=== PATIENT | male | born 1970 | race Caucasian/White ===

== ENCOUNTER → 2020-08-02 13:32 | Outpatient (CLI) | payer OTHER, SELFPAY ==
--- NOTE | ~2020-08-02 | XR_ITS ---
XR elbow RT min 3V DATE: 08/02/2020 13:57 INDICATION: Right elbow, arm pain TECHNIQUE: 5 views COMPARISON: None FINDINGS: There is a mildly depressed fracture of the radial head. There is spurring of the coronoid process of the proximal ulna. There is minimal if any elevation of the fat pads at the elbow. No prior radiograph available for [facility]. IMPRESSION: Radial head fracture Reviewed, dictated and finalized at location A. MANAGER IMPRESSION: Radial head fracture
== END ==
PROVIDERS: PCP Family Medicine; Visit Provider Physician Assistant
DX: S52.121A Displaced fracture of head of right radius, initial encounter for closed fracture (principal)
CPT/HCPCS: 73080

== ENCOUNTER → 2020-08-28 10:01 | Outpatient (CLI) | payer OTHER, SELFPAY ==
--- NOTE | ~2020-08-28 | MR_ITS ---
EXAMINATION: MR elbow RT wo/w con DATE: 08/28/2020 10:47 INDICATION: Displaced fracture of head of right radius. Right elbow pain. TECHNIQUE: Magnetic resonance imaging (MRI) of the right elbow was performed without and with 19 mL M ultiHance intravenous contrast. Sequences included coronal, axial, and sagittal T1-weighted FSE and T 2-weighted FS FSE, axial T1-weighted FS FSE, and postcontrast axial and sagittal T1-weighted FS FSE. COMPARISON: Right elbow radiographs 08/02/2020 FINDINGS: Osseous/other: Bone alignment is normal. There is a healing fracture deformity of radial head with up to 2 mm offset at the articular surface. There is mild osteoarthritis of radiocapitellar joint and ulnohumeral join t. Tendons: Biceps tendon and brachialis tendon are normal. The common extensor tendon is normal. The common flex or tendon is normal. There is bone marrow edema in medial humeral epicondyle. Ligaments: Radial collateral ligament, lateral ulnar collateral ligament, and ulnar collateral ligament are inta ct. Cubital tunnel: The ulnar nerve is normal. Fluid: There is an elbow joint effusion with enhancing synovitis. IMPRESSION: 1. Healing fracture deformity of radial head with up to 2 mm offset at the articular surface. 2. Mild elbow joint osteoarthritis. 3. Elbow joint effusion with synovitis. 4. Bone marrow edema at medial humeral epicondyle, likely stress reaction. Reviewed, dictated and finalized at location A. 400 ANALYST IMPRESSION: 1. Healing fracture deformity of radial head with up to 2 mm offset at the bertha cular surface. 2. Mild elbow joint osteoarthritis. 3. Elbow joint effusion with synovitis. 4. Bone marrow edema at medial humeral epicondyle, likely stress reaction.
[2020-08-28 10:20] LABS: Estimated Glomerular Filt Rate > 60
== END ==
PROVIDERS: PCP Family Medicine; Visit Provider Physician Assistant
DX: S52.121D Displaced fracture of head of right radius, subsequent encounter for closed fracture with routine healing (principal); M19.021 Primary osteoarthritis, right elbow; M25.421 Effusion, right elbow; X58.XXXD Exposure to other specified factors, subsequent encounter
CPT/HCPCS: 73223; A9577

== ENCOUNTER 2023-06-12 09:07 | Outpatient (CLI) | payer OTHER, SELFPAY ==
[2023-06-12 19:03] LABS: Basophils Absolute Auto 0.1 K/mm3 (0.0-0.1); Basophils Percent Auto 0.9 % (0.2-1.2); Eosinophils Absolute Auto 0.2 K/mm3 (0-0.3); Eosinophils Percent Auto 3.1 % (0-4.4); Hemoglobin 15.1 g/dL (14.0-18.0); Immature Granulocyte Absolute 0.02 K/mm3 (0.00-0.031); Immature Granulocyte Percent A 0.3 % (0-0.5); Lymphocytes Absolute Auto 2.06 K/mm3 (0.9-3.2); Lymphocytes Percent Auto 31.6 % (18.3-44.2); Mean Corpuscular HGB Conc 32.1 g/dl (32-36); Mean Corpuscular Hemoglobin 29.5 pg (26-34); Mean Corpuscular Volume 91.8 fl (80-100); Mean Platelet Volume 10.7 fl (7.4-10.4); Monocytes Absolute Auto 0.4 K/mm3 (0.1-0.6); Monocytes Percent Auto 6.6 % (2.6-8.5); Neutrophils Absolute Auto 3.8 K/mm3 (1.3-6.7); Neutrophils Percent Auto 57.5 % (45.5-73.1); Platelet Count Result 194 k/mm3 (150-375); Red Blood Count 5.12 M/mm3 (4.6-6.20); Red Cell Distribution Width 12.3 % (11.5-14.5); White Blood Count 6.5 K/mm3 (4.5-10.0)
[2023-06-12 19:19] LABS: Alanine Aminotransferase 27 U/L (6-50); Albumin Level 4.6 g/dL (3.5-5.1); Alkaline Phosphatase 75 U/L (38-126); Anion Gap 6 mmol/L (8-16); Aspartate Amino Transferase 37 U/L (17-59); Bilirubin,Total 0.8 mg/dL (0.2-1.3); Blood Urea Nitrogen 17 mg/dL (9-20); Calcium 9.2 mg/dL (8.4-10.2); Carbon Dioxide 31 mmol/L (22-30); Chloride 101 mmol/L (98-107); Cholesterol 261 mg/dL (0-200); Estimated Glomerular Filt Rate > 60; Glucose 85 mg/dL (65-110); HDL Direct 53 mg/dL; Potassium 4.7 mmol/L (3.4-5.0); Sodium 138 mmol/L (137-145); Triglycerides 182 mg/dL (<150)
[2023-06-12 21:05] LABS: Prostate Specific Antigen 0.4 ng/mL (< OR = 4.0)
[2023-06-12 21:36] LABS: Vitamin D 25 Hydroxy 33.7 ng/mL
[2023-06-12 21:38] LABS: LDL Cholesterol Direct 159 mg/dL
== END 2023-06-12 09:08 | disposition home or self-care (01) ==
LOC: ANHGOSHLAB 09:09
PROVIDERS: PCP Family Medicine; Visit Provider Family Medicine
DX: Z00.00 Encounter for general adult medical examination without abnormal findings (principal); I10 Essential (primary) hypertension; E53.8 Deficiency of other specified B group vitamins; E55.9 Vitamin D deficiency, unspecified; Z12.5 Encounter for screening for malignant neoplasm of prostate; E78.5 Hyperlipidemia, unspecified; R03.0 Elevated blood-pressure reading, without diagnosis of hypertension
CPT/HCPCS: 36415; 80053; 80061; 82306; 82607; 84153; 84443; 85025; G0103

== ENCOUNTER 2023-09-12 00:27 | Day surgery (SDC) | payer OTHER, SELFPAY ==
[2023-08-21 08:15] VITALS: BMI 30.7
--- NOTE | 2023-09-10 08:37 | SUR.PREOP ---
Patient called regarding upcoming procedure. Reviewed preop instructions, appointment times, and procedure prep.
[2023-09-12 09:23] VITALS: BP 120/83; PULSE 80; RESP 20; TEMP 36; O2SAT 100
--- NOTE | 2023-09-12 09:46 | PM.HPGS ---
History of Present Illness History of Present Illness Consent: Risks, benefits, and alternatives have been discussed and questions answered. Patient agrees to proceed with procedure. Chief complaint: neoplasm screening Narrative: Sudheer Lopez is a 52 year old male here for first screening colonoscopy Review of Systems Constitutional: Constitutional: Denies headache(s) and Denies weakness Eyes: Eyes: Denies blurry vision ENT: Reports Normal hearing present, Denies headache(s) and Denies neck pain Cardiovascular: Cardiovascular: Denies chest pain and Denies dyspnea Respiratory: Respiratory: Denies dyspnea Gastrointestinal: Gastrointestinal: Reports no additional gastrointestinal complaints Genitourinary: Genitourinary: Denies dysuria Musculoskeletal: Musculoskeletal: Denies neck pain Integumentary/Breasts: Skin/Breast: Denies dry skin Neurologic: Reports Normal hearing present, Denies headache(s) and Denies weakness Psychiatric: Psychiatric: Denies anxiety Endocrine: Endocrine: Denies change in body appearance Hematologic/Lymphatic: Hematologic/Lymphatic: Denies easy bleeding Allergic/Immunologic: Allergic/Immunologic: Denies urticaria [facility] Past Medical History Medical History (Updated 09/12/23 @ 09:46 by Nelson Key MD) Colon cancer screening Dyslipidemia Social History Social History Smoking status: Never smoker Alcohol intake: current Alcohol use details: very little Substance use: never Substance use type: does not use Lack of Transportation: No Lack of Food: Never True Current Housing: I Have Housing Concerned About Future Housing: No Difficulty Paying Gas/Electric Bills: No Difficulty Paying for Meds: No Currently Unemployed: No Education: High School Diploma/GED Difficulty w/ Childcare or Family Care: No Living arrangements: with family Occupation/Education: occupation Gender identity (if verbalized by the patient): Male Spiritual care concerns: No Agree to blood products: Yes Meds Home Medications and Allergies Home Medications Medication Instructions Recorded Confirmed Type atorvastatin 10 mg tablet (Lipitor) 10 mg PO QHS #90 tabs 09/08/23 09/08/23 Rx Allergies Allergy/AdvReac Type Severity Reaction Status Date / Time Penicillins Allergy Unknown Unknown Verified 09/12/23 09:22 Vital Signs Vital Signs - 24 hr 09/12/23 09:23 Temperature 96.8 F L Pulse Rate 80 Respiratory Rate 20 Blood Pressure 120/83 Pulse Oximetry 100 Oxygen Delivery Room Air Exam Const: General: comfortable and no acute distress HENMT: Face/Nose/Sinus: Normal nares present Eyes: General: appearance normal, both eyes and all related structures Neck: Neck: no JVD Resp: Auscultation: clear to auscultation bilaterally Cardio: Rate: regular rate Rhythm: regular rhythm GI: Inspection: non-distended GI Palp: Yes Soft to palpation Skin: General skin exam: normal color Neuro: General: gait normal Speech: normal speech Extrem: General: normal to inspection Psych: Mental Status: mental status grossly normal Assessment and Plan Assessment and plan (1) Colon cancer screening: Code(s): Z12.11 - Encounter for screening for malignant neoplasm of colon Status: Acute Assessment and Plan: colonoscopy
--- NOTE | 2023-09-12 09:50 | WPDANESEPPF ---
Anes - Initial Pre Proc Eval Procedure: Operation Date: 09/12/23 10:30 Proposed Procedures p Screening Colonoscopy - Nelson Key MD Date/Time: 09/12/23 09:50 Surgeon: Nelson Key MD Pre Op Diagnosis: neoplasm screening Patient Data Age: 52 Gender: M Height: 1.8 m Weight: 102 kg Last Vital Signs Temp 96.8 F L 09/12/23 09:23 Pulse 80 09/12/23 09:23 Resp 20 09/12/23 09:23 BP 120/83 09/12/23 09:23 Pulse Ox 100 09/12/23 09:23 O2 Del Method Room Air 09/12/23 09:23 Allergies Allergy/AdvReac Type Severity Reaction Status Date / Time Penicillins Allergy Unknown Unknown Verified 09/12/23 09:22 Home Medications Medication Instructions Recorded Confirmed Type atorvastatin 10 mg tablet (Lipitor) 10 mg PO QHS #90 tabs 09/08/23 09/08/23 Rx Patient hx anesthesia problems: none Family hx anesthesia problems: none Results Review: All pre-operative results and documents have been reviewed as part of the pre-operative evaluation. [facility] Past Medical History Medical History (Updated 09/12/23 @ 09:46 by Nelson Key MD) Colon cancer screening Dyslipidemia Social History Social History Smoking status: Never smoker Alcohol intake: current Alcohol use details: very little Substance use: never Substance use type: does not use Lack of Transportation: No Lack of Food: Never True Current Housing: I Have Housing Concerned About Future Housing: No Difficulty Paying Gas/Electric Bills: No Difficulty Paying for Meds: No Currently Unemployed: No Education: High School Diploma/GED Difficulty w/ Childcare or Family Care: No Living arrangements: with family Occupation/Education: occupation Gender identity (if verbalized by the patient): Male Spiritual care concerns: No Agree to blood products: Yes Anes - Eval Final PreProcedure Day of Procedure 09/12/23 09:50 Patient weight: overweight Heart: regular rate and rhythm Lungs: clear to auscultation Airway: Mallampati scale class II Neurological: alert and oriented Last oral intake: >/= 8 hours ASA classification: II Emergent: no Anesthetic plan: proceed Anesthesia type and monitoring: general GIVS and standard monitoring Results Review: All pre-operative results and documents have been reviewed as part of the pre-operative evaluation. Informed Consent: The patient's anesthetic plan and its attendant risks and benefits were discussed with the patient/family/POA. Questions were solicited and answers provided to the satisfaction of the patient/family/POA.
[2023-09-12 10:06] VITALS: BP 88/34; PULSE 68; RESP 18; O2SAT 97
[2023-09-12 10:16] VITALS: BP 105/65; PULSE 58; RESP 18; O2SAT 98
[2023-09-12 10:26] VITALS: BP 119/78; PULSE 60; RESP 20; O2SAT 100
[2023-09-12] MEDS: LACTATED RINGERS 1,000 ML 150 ML IV CONT (10:27)
--- NOTE | 2023-09-12 11:00 | SUR.PHASEII ---
IV FLUIDS DOCUMENTED AT INCORRECT TIMES DUE TO COMPUTER DOWNTIME. IV FLUIDS STARTED IN PRE-OP, ADMINISTERED IN INTRA-OP, AND DISCONTINUED IN POST OP APPROPRIATELY.
== END 2023-09-12 10:36 | disposition home or self-care (01) ==
PROVIDERS: PCP Family Medicine; Visit Provider Internal Medicine Gastroenterology
PROC: 0DJD8ZZ Inspection of Lower Intestinal Tract, Via Natural or Artificial Opening Endoscopic (ICD-10-PCS; CPT 45378; principal; 2023-09-12 10:30)
DX: Z12.11 Encounter for screening for malignant neoplasm of colon (principal); K63.5 Polyp of colon; E78.5 Hyperlipidemia, unspecified
CPT/HCPCS: 45380; 88305; J2704; J7120

== ENCOUNTER 2024-07-15 08:21 | Outpatient (CLI) | payer OTHER, SELFPAY ==
[2024-07-15 18:42] LABS: Basophils Absolute Auto 0.1 K/mm3 (0.0-0.1); Basophils Percent Auto 0.9 % (0.2-1.2); Eosinophils Absolute Auto 0.2 K/mm3 (0-0.3); Eosinophils Percent Auto 2.9 % (0-4.4); Hematocrit 46.1 % (42.0-52.0); Hemoglobin 14.7 g/dL (14.0-18.0); Immature Granulocyte Absolute 0.01 K/mm3 (0.00-0.031); Immature Granulocyte Percent A 0.2 % (0-0.5); Lymphocytes Absolute Auto 1.49 K/mm3 (0.9-3.2); Lymphocytes Percent Auto 26.6 % (18.3-44.2); Mean Corpuscular HGB Conc 31.9 g/dl (32-36); Mean Corpuscular Hemoglobin 30.3 pg (26-34); Mean Corpuscular Volume 95.1 fl (80-100); Mean Platelet Volume 10.9 fl (7.4-10.4); Monocytes Absolute Auto 0.4 K/mm3 (0.1-0.6); Monocytes Percent Auto 7.1 % (2.6-8.5); Neutrophils Absolute Auto 3.5 K/mm3 (1.3-6.7); Neutrophils Percent Auto 62.3 % (45.5-73.1); Platelet Count Result 194 k/mm3 (150-375); Red Blood Count 4.85 M/mm3 (4.6-6.20); Red Cell Distribution Width 12.6 % (11.5-14.5); White Blood Count 5.6 K/mm3 (4.5-10.0)
[2024-07-15 19:31] LABS: Vitamin D 25 Hydroxy 32.4 ng/mL
[2024-07-15 19:37] LABS: Alanine Aminotransferase 29 U/L (6-50); Albumin Level 4.5 g/dL (3.5-5.1); Alkaline Phosphatase 81 U/L (38-126); Anion Gap 8 mmol/L (4-12); Aspartate Amino Transferase 60 U/L (17-59); Bilirubin,Total 0.5 mg/dL (0.2-1.3); Blood Urea Nitrogen 19 mg/dL (9-20); Calcium 8.8 mg/dL (8.4-10.2); Carbon Dioxide 28 mmol/L (22-30); Chloride 105 mmol/L (98-107); Cholesterol 191 mg/dL (0-200); Estimated Glomerular Filt Rate > 60; Glucose 85 mg/dL (65-110); HDL Direct 50 mg/dL; Potassium 4.9 mmol/L (3.4-5.0); Sodium 141 mmol/L (137-145); Triglycerides 99 mg/dL (<150)
[2024-07-15 19:48] LABS: LDL Cholesterol Direct 106 mg/dL
[2024-07-15 20:09] LABS: Prostate Specific Antigen 0.4 ng/mL (< OR = 4.0)
[2024-07-15 21:50] LABS: Hemoglobin A1C 5.5 % (<5.7)
== END 2024-07-15 08:22 | disposition home or self-care (01) ==
LOC: ANHGOSHLAB 08:22
PROVIDERS: PCP Family Medicine; Visit Provider Family Medicine
DX: Z00.00 Encounter for general adult medical examination without abnormal findings (principal); Z12.5 Encounter for screening for malignant neoplasm of prostate; R73.9 Hyperglycemia, unspecified; E55.9 Vitamin D deficiency, unspecified; E53.8 Deficiency of other specified B group vitamins; E78.5 Hyperlipidemia, unspecified; Z79.899 Other long term (current) drug therapy
CPT/HCPCS: 36415; 80053; 80061; 82306; 82607; 83036; 84153; 84443; 85025; G0103

== ENCOUNTER 2024-12-17 08:20 | Outpatient (CLI) | payer OTHER, SELFPAY ==
--- OUTSIDE RECORDS SUMMARY | 2024-12-17 08:28 | XMS_ITS | Clinical Summary ---
Author Organization [facility] Address [address] [place] [address] Care Team Providers Care Campus Recruiter Name Role Phone Devi Calles MD Primary Care Provider [phone] [phone] Source Comments [facility],non-owned Affiliates and Associated Physician Practices is amultiple site organization consisting of ambulatory clinics and hospital sitesin [place], [place], [place] and [place]. This disclosure is being madepursuant to the Care Everywhere program and may not contain all information available regarding this patient. Last updated 18.[facility] Allergies Active Allergy Reactions Criticality Noted Date Comments Penicillins 09/04/2017 Medications * Be aware that medications may not be up to date on this document. Alwaysverify current medications with the patient. 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 Gender Identity Not on file Sexual Orientation Not on file Last Filed Vital Signs Vital Sign Reading Time Taken Comments Blood Pressure 92/68 09/04/2017 12:40 PM BOWLING OR SKATING FRONT DESK CLERK Pulse 81 09/04/2017 12:40 PM BOWLING OR SKATING FRONT DESK CLERK Temperature 36.8 C (98.2 F) 09/04/2017 12:40 PM BOWLING OR SKATING FRONT DESK CLERK Respiratory Rate 16 09/04/2017 12:40 PM BOWLING OR SKATING FRONT DESK CLERK Oxygen Saturation 97% 09/04/2017 12:40 PM BOWLING OR SKATING FRONT DESK CLERK Inhaled Oxygen Concentration - - Weight 97.5 kg (215 lb) 09/04/2017 12:40 PM BOWLING OR SKATING FRONT DESK CLERK Height 182.9 cm (6') 09/04/2017 12:40 PM BOWLING OR SKATING FRONT DESK CLERK Body Mass Index 29.16 09/04/2017 12:40 PM BOWLING OR SKATING FRONT DESK CLERK Plan of Treatment Health Maintenance Due Date Last Done Comments COLOGUARD (AGES 45-75) - COL ON CA SCREENING 1972 COLON MONITORING 1972 COLONOSCOPY - COLON CA SCREENING 1972 CT COLONOGRAPHY - COLON CA SCREENING 1972 Colorectal Cancer Screening 1972 FIT - COLON CA SCREENING 1972 FLEX SIG - COLON CA SCREENING 1972 LIPID TESTING 1972 HIV SCREENING 1987 HEPATITIS C SCREENING 09/10/1990 DTAP/TDAP/TD VACCINES (1 - Tdap) 1991 HEPATITIS B VACCINE (1 of 3 - 19+ 3-dose series) 1991 SCREENING FOR DIABETES 09/04/2017 PNEUMOCOCCAL VACCINE 50+ (1 of 1 - PCV) 2022 ZOSTER VACCINE (1 of 2) 2022 COVID-19 VACCINE (1 - 2023-2 5 season) 2024 DEPRESSION SCREENING 08/25/2024 INFLUENZA VACCINE (Season Ended) 2025 HIB VACCINE Aged Out No longer eligi ble based on patient's age to complete this topic HPV VACCINE Aged Out No longer eligi ble based on patient's age to complete this topic MENINGOCOCCAL (Group B) VACC INE SHARED DECISION-MAKING Aged Out No longer eligibl e based on patient's age to complete this topic MENINGOCOCCAL GROUPS A/C/Y/W VACCINE Aged Out No longer eligible b ased on patient's age to complete [place] [id number] [employer] AETNA SELF PAY NO INSURANCE Member Subscriber Plan / Payer (Ef fective for All Dates) Name:Sudheer Lopez Member ID:Not on file Relation to Subscriber:Not on file Name:SUDHEER LOPEZ Subscriber ID:Not on file Address: [address] [place] [address] [place] [address] Payer ID:Not on file Group ID:Not on file Type:Self Pay Address: [place], [place] Care Teams Campus Recruiter Relationship Specialty Start Date End Date Devi Calles MD [address] [place] [address] PCP - General Family Medicine 09/04/17
--- OUTSIDE RECORDS SUMMARY | 2024-12-17 08:28 | XMS_ITS | Referral Summary ---
Author Organization [address] Address [address] [place] [id number] Care Team Providers Care Director Of Laboratory Operations Name Role Phone Devi Calles MD Primary Care Provider + Allergies No known active allergies Medications No known medications Active Problems No known active problems Social History Tobacco Use Types Packs/Day Years Used Date Smoking Tobacco: Never Assessed Sex and Gender Information Value Date Recorded Sex Assigned at Not on file Legal Sex Male 9:14 AM CDT Gender Identity Not on file Sexual Orientation Not on file Last Filed Vital Signs Vital Sign Reading Time Taken Comments Blood Pressure 127/78 05/05/2023 9:37 AM CDT Pulse 57 05/05/2023 9:37 AM CDT Temperature 36.8 C (98.2 F) 05/05/2023 9:37 AM CDT Respiratory Rate 18 05/05/2023 9:37 AM CDT Oxygen Saturation 100% 05/05/2023 9:37 AM CDT Inhaled Oxygen Concentration - - Weight 101.6 kg (223 lb 14.4 oz) 05/05/2023 9:37 AM CDT Height 180.3 cm (5' 11 ) 05/05/2023 9:37 AM CDT Body Mass Index 31.23 05/05/2023 9:37 AM CDT Plan of Treatment Not on file Insurance [employer] [place] [id number] AETNA [facility] HMO [place] [phone] Care Teams Director Of Laboratory Operations Relationship Specialty Start Date End Date Devi Calles MD PCP - General Family Medicine 05/05/23
--- OUTSIDE RECORDS SUMMARY | 2024-12-17 08:28 | XMS_ITS | Clinical Summary ---
Author Organization [address] Address [address] [place] [phone] Care Team Providers Care Day Habilitation Specialist Name Role Phone Devi Calles MD Primary [...] on file Sexual Orientation Not on file Obstetrics History Last Filed Vital Signs Vital Sign Reading [...] 05/05/2023 9:37 AM CDT Plan of Treatment Health Maintenance Due Date Last Done Comments Colon Cancer Screening-Colonoscopy 1972 Depression Screening 1972 Hepatitis C Screening 1972 Prostate Cancer Screening-PSA 1972 Hepatitis B Screening 1990 Regular Well Visit/Exam 18-64 1990 DTaP/Tdap/Td Vaccine (1 - Tdap) 07/12/2020 07/11/2020 Zoster Vaccine (1 of 2) 2022 Covid-19 Vaccine (3 - 2023-2 5 season) 2024 02/26/2021, 01/29/2021 Influenza Vaccine (#1) 2024 2, 07/11/2020 Pneumococcal vaccine <65 Aged Out No longer eligible based on patient's age to complete this topic Insurance [facility] HMO Care Teams Day Habilitation Specialist Relationship Specialty Start Date End Date Devi Calles MD PCP - General Family Medicine 05/05/23
[2024-12-17 18:51] LABS: Alanine Aminotransferase 30 U/L (6-50); Albumin Level 4.5 g/dL (3.5-5.1); Alkaline Phosphatase 88 U/L (38-126); Anion Gap 10 mmol/L (4-12); Aspartate Amino Transferase 45 U/L (17-59); Bilirubin,Total 0.6 mg/dL (0.2-1.3); Blood Urea Nitrogen 18 mg/dL (9-20); Carbon Dioxide 26 mmol/L (22-30); Chloride 103 mmol/L (98-107); Estimated Glomerular Filt Rate > 60; Glucose 79 mg/dL (65-110); Potassium 4.5 mmol/L (3.4-5.0); Sodium 139 mmol/L (137-145)
== END 2024-12-17 08:21 | disposition home or self-care (01) ==
LOC: ANHGOSHLAB 08:21
PROVIDERS: PCP Family Medicine; Visit Provider Family Medicine
DX: R74.01 Elevation of levels of liver transaminase levels (principal)
CPT/HCPCS: 36415; 80053

== ENCOUNTER 2025-07-15 08:32 | Outpatient (CLI) | payer OTHER, SELFPAY ==
--- OUTSIDE RECORDS SUMMARY | 2025-07-15 08:36 | XMS_ITS | Clinical Summary ---
Author Organization [facility] Address [address] [place] [address] Care Team Providers Care Vp Analysis Name Role Phone Devi Calles MD Primary Care Provider [phone] [phone] Source Comments [facility],non-owned Affiliates and Associated Physician Practices is amultiple site organization consisting of ambulatory clinics and hospital sitesin [place], [place], [place] and [place]. This disclosure is being madepursuant to the Care Everywhere program and may not contain all information available regarding this patient. 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 Gender Identity Not on file Sexual Orientation Not on file Last Filed Vital Signs Vital Sign Reading Time Taken Comments Blood Pressure 92/68 09/04/2017 12:40 PM COMPOSITION TILE LAYER Pulse 81 09/04/2017 12:40 PM COMPOSITION TILE LAYER Temperature 36.8 C (98.2 F) 09/04/2017 12:40 PM COMPOSITION TILE LAYER Respiratory Rate 16 09/04/2017 12:40 PM COMPOSITION TILE LAYER Oxygen Saturation 97% 09/04/2017 12:40 PM COMPOSITION TILE LAYER Inhaled Oxygen Concentration - - Weight 97.5 kg (215 lb) 09/04/2017 12:40 PM COMPOSITION TILE LAYER Height 182.9 cm (6') 09/04/2017 12:40 PM COMPOSITION TILE LAYER Body Mass Index 29.16 09/04/2017 12:40 PM COMPOSITION TILE LAYER Plan of Treatment Health Maintenance Due Date [...] 2022 ZOSTER VACCINE (1 of 2) 2022 DEPRESSION SCREENING 08/25/2024 COVID-19 VACCINE (1 - 2024-2 6 season) 2025 INFLUENZA VACCINE (#1) 2025 HIB VACCINE Aged Out No longer [...] to complete [place] [id number] A[employer] AETNA SELF PAY NO INSURANCE Member Subscriber Plan / Payer (Ef fective for All Dates) Name:Sudheer Lopez Member ID:Not on file Relation to Subscriber:Not on file Name:SUDHEER LOPEZ Subscriber ID:Not on file Address: [address] [place] [address] [place] [id number] Payer ID:Not on file Group ID:Not on file Type:Self Pay Address: [place], [place] Care Teams Vp Analysis Relationship Specialty Start Date End Date Devi Calles MD [address] [place] [address] PCP - General Family Medicine 09/04/17
--- OUTSIDE RECORDS SUMMARY | 2025-07-15 08:36 | XMS_ITS | Clinical Summary ---
Author Organization [address] Address [address] [place] [id number] Care Team Providers Care Computer Forensic Examiner Name Role Phone Devi Calles MD Primary [...] Weight 101.6 kg (223 lb 14.4 oz) 2022 9:37 AM CDT Height 180.3 cm (5' 11) 05/05/2023 9:37 AM CDT Body Mass Index 31.23 05/05/2023 9:37 AM CDT Plan of Treatment Health Maintenance Due Date Last Done Comments Colon Cancer Screening-Colonoscopy 1972 Depression Screening 1972 Hepatitis C Screening 1972 Prostate Cancer Screening-PSA 1972 Hepatitis B Screening 1990 Regular Well Visit/Exam 18-64 1990 DTaP/Tdap/Td Vaccine (1 - Tdap) 07/12/2020 07/11/2020 Zoster Vaccine (1 of 2) 2022 Covid-19 Vaccine (3 - 2024-2 6 season) 2025 02/26/2021, 01/29/2021 Influenza Vaccine (#1) 2025 2, 07/11/2020 Pneumococcal vaccine <65 Aged Out No longer eligible based on patient's age to complete this topic Insurance [facility] HMO Care Teams Computer Forensic Examiner Relationship Specialty Start Date End Date Devi Calles MD PCP - General Family Medicine 05/05/23
[2025-07-15 11:38] LABS: Hematocrit 45.9 % (42.0-52.0); Hemoglobin 14.8 g/dL (14.0-18.0); Immature Granulocyte Percent A 0.4 % (0-0.5); Lymphocytes Absolute Auto 1.75 K/mm3 (0.9-3.2); Mean Corpuscular HGB Conc 32.2 g/dl (32-36); Mean Corpuscular Hemoglobin 29.5 pg (26-34); Mean Corpuscular Volume 91.6 fl (80-100); Nucleated Red Blood Cells Absolute Auto 0.000 K/mm3 (0.0-0.012); Nucleated Red Blood Cells Perc 0.0 % (0.0-0.2); Platelet Count Result 194 k/mm3 (150-375); Red Blood Count 5.01 M/mm3 (4.6-6.20); White Blood Count 6.9 K/mm3 (4.5-10.0)
[2025-07-15 11:47] LABS: Alanine Aminotransferase 28 U/L (6-50); Albumin Level 4.5 g/dL (3.5-5.1); Alkaline Phosphatase 86 U/L (38-126); Anion Gap 6 mmol/L (4-12); Aspartate Amino Transferase 51 U/L (17-59); Bilirubin,Total 0.6 mg/dL (0.2-1.3); Blood Urea Nitrogen 19 mg/dL (9-20); Calcium 8.8 mg/dL (8.4-10.2); Carbon Dioxide 28 mmol/L (22-30); Chloride 104 mmol/L (98-107); Cholesterol 198 mg/dL (0-200); Estimated Glomerular Filt Rate > 60; Glucose 99 mg/dL (65-110); HDL Direct 54 mg/dL; Potassium 5.0 mmol/L (3.4-5.0); Sodium 138 mmol/L (137-145); Total Protein 7.6 g/dL (6.3-8.2); Triglycerides 101 mg/dL (<150)
[2025-07-15 12:17] LABS: Thyroid Stimulating Hormone Reflex 1.620 uIU/mL (0.465-4.68)
[2025-07-15 12:25] LABS: Prostate Specific Antigen 0.4 ng/mL (< OR = 4.0)
[2025-07-15 12:43] LABS: Vitamin B12 493.0 pg/mL (239-931)
[2025-07-15 16:17] LABS: Hemoglobin A1C 5.6 % (<5.7)
== END 2025-07-15 08:33 | disposition home or self-care (01) ==
LOC: ANHGOSHLAB 08:32
PROVIDERS: PCP Family Medicine; Visit Provider Family Medicine
DX: Z00.00 Encounter for general adult medical examination without abnormal findings (principal); E53.8 Deficiency of other specified B group vitamins; R73.9 Hyperglycemia, unspecified; E78.5 Hyperlipidemia, unspecified; Z13.29 Encounter for screening for other suspected endocrine disorder; E55.9 Vitamin D deficiency, unspecified; Z12.5 Encounter for screening for malignant neoplasm of prostate; Z79.899 Other long term (current) drug therapy
CPT/HCPCS: 36415; 80053; 80061; 82306; 82607; 83036; 84153; 84443; 85025; G0103